=== PATIENT | male | born 1980 | race Hispanic/Latino ===

== ENCOUNTER 2024-11-06 10:05 | Day surgery (SDC) | payer BC ==
--- NOTE | 2024-11-03 15:41 | RAD REPORT ---
Procedure: Chest Pa And Lat (2 Views) HISTORY: Preop for hernia surgery COMPARISON: 2020 FINDINGS: The lungs appear clear of acute infiltrate. No significant pleural effusion noted. The heart is normal size. IMPRESSION: No acute abnormality is displayed.
[2024-11-03 15:42] LABS: Absolute Eosinophils 0.1 K/uL (0-0.5); Absolute Lymphocytes (CBC) 1.7 K/uL (0.7-4.9); Absolute Monocytes 0.4 K/uL (0.1-1.3); Absolute Neutrophil 3.3 K/uL (1.8-8.0); Basophils % 0.6 % (0-1.3); Eosinophils % 1.6 % (0-4.4); Hematocrit 44.4 % (39.6-49.0); Hemoglobin 15.7 g/dL (13.6-17.9); Lymphocytes % 30.7 % (15.3-44.8); MCH 31.3 pg (27.0-35.0); MCHC 35.3 g/dL (32.0-36.0); MCV 88.5 fL (80-100); MPV 9.3 fL (7.6-11.3); Neutrophils % 59.1 % (41.7-73.7); Nucleated Red Blood Cells % 0.1 % (0-0); Platelets 195 thou/uL (152-406); RBC Red Blood Cell Count 5.02 M/uL (4.33-5.43); Red Cell Distribution Width 13.9 % (12.1-15.2)
[2024-11-03 16:00] LABS: Anion Gap 6.1 mEq/L (5.0-15.0); Potassium 4.1 mEq/L (3.5-5.1)
[2024-11-06] MEDS: Ringers Lactate 1,000 ML IV ONE (10:30)
[2024-11-06] MEDS ORDERED: FENTANYL CITR 100 MCG/2 ML ONE ×2 (12:01→13:00)
[2024-11-06] MEDS ORDERED: MIDAZOLAM HCL 2 MG/2 ML INJ ONE (12:01)
[2024-11-06] MEDS ORDERED: ROCURONIUM 50 MG/5 ML VIAL IV ONE (12:01)
[2024-11-06] MEDS ORDERED: LIDOCAINE 2% MPF 5 ML VIAL ONE (12:01)
[2024-11-06] MEDS ORDERED: propofoL 200 MG/20 ML VIAL IV ONE (12:01)
[2024-11-06] MEDS: CEFAZOLIN SODIUM 1 GM/VIAL ONE (12:45)
[2024-11-06] MEDS ORDERED: dexAMETHasone 4 MG/ML VIAL ONE (13:22)
[2024-11-06] MEDS ORDERED: ONDANSETRON 4 MG/2 ML VIAL ONE (13:22)
[2024-11-06] MEDS ORDERED: KETOROLAC 30 MG/ML INJ ONE (13:23)
[2024-11-06] MEDS ORDERED: GLYCOPYRROLATE 0.2 MG/ML SYR ONE (13:27)
--- NOTE | 2024-11-06 13:37 | P.BOP ---
Preoperative diagnosis: tender reducible left inguinal hernia Postoperative diagnosis: same Primary procedure: Laparoscopic repair of tender reducible left inguinal hernia with mesh Estimated blood loss: <10cc Specimen: sac Findings: direct hernia Anesthesia: General Complications: None Implants: mesh 3d medium Transferred to: Recovery Room Condition: Good
[2024-11-06 14:14] VITALS: TEMP 97.9
[2024-11-06 14:53] VITALS: BP 130/78; O2SAT 100
[2024-11-06] MEDS: CODEINE 30MG/APAP 300MG TAB ONE (14:59)
== END 2024-11-06 15:45 | disposition home or self-care (01) ==
LOC: OR 10:05
PROVIDERS: ATTEND Surgery
PROC: 0YU64JZ Supplement Left Inguinal Region with Synthetic Substitute, Percutaneous Endoscopic Approach (ICD-10-PCS; principal; 2024-11-06 12:00)
DX: K40.90 Unilateral inguinal hernia, without obstruction or gangrene, not specified as recurrent (principal)
CPT/HCPCS: 93005; 85025; 80048; 36415; 88302; 71046; 49650; J2704; J1100; J2003; J2250; J3010 ×2; J2405; J7120; J0690; C1781